=== PATIENT | female | born 1995 | race Caucasian/White ===

== ENCOUNTER 2024-05-13 03:44 | Observation (INO) | payer SELFPAY ==
[2024-05-12 23:36] VITALS: BP 135/92
[2024-05-13] MEDS: OMNIPAQUE 50 ML PO (01:04)
[2024-05-13 01:10] VITALS: BP 117/76
[2024-05-13 01:12] LABS: Urine Albumin Negative (Neg - Trace); Urine Bilirubin Negative (Negative); Urine Character Clear (Clear); Urine Color Yellow; Urine Glucose Negative (Negative); Urine Ketone 3+ (Negative); Urine Leukocyte Trace (Negative); Urine Nitrite Negative (Negative); Urine Occult Blood Negative (Negative); Urine Specific Gravity 1.025 (<1.030); Urine Urobilinogen Negative (Neg - 1+)
[2024-05-13 01:14] VITALS: BMI 26.4
--- NOTE | 2024-05-13 01:18 | ED.GENMED ---
History of Present Illness
General
Chief Complaint: Abdominal Pain
Source: patient
Exam Limitations: none
Time Seen by Provider: 05/13/24 00:12
History of Present Illness
History of Present Illness:
28-year-old female presents complaining of recurrent abdominal discomfort and vomiting and constipation. She was just discharged from [facility] yesterday. She had a workup including a CT scan and upper GI series as well as endoscopy. Of
note, patient is on rifampin and she has been on this for 1 month. 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 She notes decreased height. Upon discharge yesterday she had a couple bites of dinner and egg with
potatoes for breakfast and rice. She then vomited later multiple times. She also describes sensation of needing to move her bowels but cannot pass any stool. She has not moved her bowels in over a week. They tried milk of molasses enema at the
hospital she tried fleets enemas at home with magnesium citrate and MiraLAX without relief.
Phy Exam
Physical Exam
Physical Exam:
General: Well-appearing female no acute respiratory distress
HEENT: Normocephalic atraumatic
Heart: Regular rate and rhythm no murmurs
Lungs: Clear no wheeze or rales
Abdomen is soft tender to the right mid abdomen no guarding rebound normal bowel sounds nondistended
Rectal exam: Female clinical nursing director present in room during this exam. No rectal impaction. No hemorrhoids or fissures.
Extremities: No cyanosis
Course
Orders/Labs/Results
Orders:
Orders
05/13/24 00:33
Test Result ONCE
05/13/24 00:48
Urinalysis Reflex To Culture Urgent
Date Specimen was Collected: 05/13/24
Time Specimen was Collected: 00:47
Urine Microscopic Reflex Cult Urgent
Urine Culture Urgent
KELSY Source: U
Specimen Description:
Date Specimen was Collected: 05/13/24
Time Specimen was Collected: 00:47
Iohexol [Omnipaque] See Protocol PO NOW STA
05/13/24 00:59
Complete Blood Count/With Diff Urgent
Comprehensive Metabolic Panel Urgent
HCG, Serum Qualitative Screen Urgent
Lipase Urgent
Comment: ADD ON
05/13/24 01:29
Add On- LAB Urgent
Tests Added?: lipase
05/13/24 02:13
0.9% Sodium Chloride 1000 ml [Nss] 1,000 ml IV BOLUS
Ondansetron Injectable [Zofran] 4 mg IV NOW STA
05/13/24 03:18
Admit/Transfer Patient As Directed
Co-Sign Provider:
Level of Care: Observation services
Assign to:: Medical/Surgical
Physician / Group: Hospitalist
Diagnosis: Intractable vomiting
Code Status As Directed
Resuscitation Status: Full Code
PRN Pain Medication Management As Directed
May give lesser potent ordered pain med per pt: Yes
preference::
Protocol:: Medication orders for pain may be administered in a
manner that supports deferring to patient preference
when the pt is:
- Requesting an ordered lesser potent pain medication.
Least to most potent pain medications are defined
as: acetaminophen < NSAID < tramadol < opioids
(morphine, oxycodone, hydromorphone).
- Requesting a lesser dose of the same medication IF
ORDERED.
- Requesting a less intrusive route of administration
if both routes are prescribed by the provider (PO <
IV).
05/13/24 04:00
Flush (0.9% Sodium Chloride) [Flush (Nss)] See Dose Instructions IV PER PROTOCOL
05/13/24 04:33
Acetaminophen [Tylenol] 650 mg PO Q4HPRN PRN
Dextrose 5%/Lactringers 1000ML [D5lr] 1,000 ml IV 60 mls/hr
Dicyclomine [Bentyl] 10 mg PO QIDPRN PRN
Docusate W/Senna [Senokot-S] 1 tablet PO BIDPRN PRN
Mag Hydrox/Al Hydrox/Simeth [Maalox] 30 ml PO Q6HPRN PRN
Metoclopramide [Reglan] 10 mg IV Q6HPRN PRN
Polyethylene Glycol Powder [Miralax] 17 grams PO DAILYPRN PRN
05/13/24 04:33
Consult Notification Routine
Specialty to Notify: Gastroenterology
Date consulting provider notified: 05/13/24
Time consulting provider notified: 08:05
Notified:: Provider
Comment: TT'd Physician On-Call(Royer)
GASTROINTESTINAL CONSULT Routine
Consulting Provider: Sirisha Linton
Was physician already notified: No
Reason for consult: intractable emesis
Activity As Directed
Activity Level: With Assistance
Medical Records Request [Obtain Records] As Directed
Dates of Information to be Released: May 08 to
Type of Information Requested: Entire Record
Discharge Summary
Obtain Records from: [facility]
Vital Signs As Directed
Frequency: Per unit guidelines
DX Deep Vein Thrombosis Video Routine
05/13/24 Breakfast
Clear Liquid
At Your Request: Full Participation
05/13/24 06:09
Basic Metabolic Panel IN AM
05/13/24 08:00
Rifampin [Rifadin] 600 mg PO DAILY
05/13/24 18:00
Enoxaparin Sodium [Lovenox] 40 mg SC QPM
Abnormal Lab Results
05/13/24 05/13/24
00:48 00:59
Abs Immat Gran (auto) 0.1 H 10^3/uL
(0-0.05)
Absolute Lymphs (auto) 3.5 H 10^3/uL
(1.2-3.4)
Immature Gran % 1.2 H %
(0-0.5)
Carbon Dioxide 19 L mmol/L
(22-30)
Creatinine 0.5 L mg/dL
(0.6-1.0)
Urine Ketones 3+ A
(Negative)
Leukocyte Esterase Rfl Trace A
(Negative)
Urine RBC 3-6 A /HPF
(0-2)
Urine Bacteria (Reflex) Moderate A
(Negative)
05/13/24 00:59
05/13/24 00:59
Vital Signs
Initial and Last Documented VS:
Initial Vital Signs
Temp Pulse Resp BP Pulse Ox
98.1 F 87 19 135/92 97
05/12/24 23:36 05/12/24 23:36 05/12/24 23:36 05/12/24 23:36 05/12/24 23:36
Last Documented Vital Signs
Temp Pulse Resp BP Pulse Ox
98.2 F 63 18 103/61 98
05/14/24 07:00 05/14/24 07:00 05/14/24 07:00 05/14/24 07:00 05/14/24 09:06
MDM/Problems Addressed
Differential Diagnosis Includes:
Abdominal pain with recurrent vomiting and lack of bowel movements. Question constipation versus bowel obstruction. I reviewed the patient's records from her visit at [facility] last week. She had a CT scan of the abdomen pelvis with IV
contrast which demonstrated findings suggestive of SMA syndrome. This then prompted a upper GI series with a barium swallow and this was negative. She also had an endoscopy during the same stay which was also negative.
Discussed with patient options at this time with her recurrent discomfort and vomiting inability to take anything by mouth, patient did state that they were talking about a feeding tube at [place]. Will recheck labs. This time do CT with oral and
IV contrast.
*Critical Care Note
Total Time (30-74mins, 75-104mins- exclusive of procedures): Not Applicable
ED Attending Note
-
Portions of this chart may have been created with voice recognition software.� Occasional wrong word or��sound alike� substitutions may have occurred due to the inherent limitations of voice recognition software.
Discharge Plan
Departure
Patient Disposition: Admit
Date of Disposition: 05/13/24
Time of Disposition: 02:24
Admit to: Med/Surg
Presentation/result/management discussed w/ accepting MD/DO: Hospitalist
Discharge Problem:
Vomiting
Interventions
Interventions:
*Risk Screen - Suicide Last Done: 05/13/24 04:46
*General Assessment Last Done: 05/12/24 23:36
*Neglect/Abuse Screening Last Done: 05/12/24 23:36
ED- Fall Risk Assessment Last Done: 05/13/24 01:14
*ED COVID-19 Vaccine History Last Done: 05/13/24 04:46
*Nursing Disposition Last Done: 05/13/24 04:29
NS-Vizojp-Dwojvmuzaw Assessment Last Done: 05/13/24 01:14
Discharge Date and Time
Discharge Date/Time: 05/13/24 04:29
[2024-05-13 01:24] LABS: HCG, Serum Qualitative Screen Negative
[2024-05-13 01:24] LABS: Urine Mucus Moderate; Urine Squamous Cell >30 /LPF (Few)
[2024-05-13 01:25] LABS: % Basophils 0.4 % (0-2); % Eosinophils 0.8 % (0-6); % Immature Granulocytes 1.2 % (0-0.5); % Lymphocytes 37.8 % (20.5-51.1); % Monocytes 6.9 % (1.7-9.3); % Neutrophils 52.9 % (42.2-75.2); Absolute Eosinophils 0.1 10^3/uL (0-0.7); Absolute Immature Granulocytes 0.1 10^3/uL (0-0.05); Absolute Lymphocytes 3.5 10^3/uL (1.2-3.4); Absolute Monocytes 0.6 10^3/uL (0.1-0.6); Absolute Neutrophils 4.9 10^3/uL (1.4-6.5); Hematocrit 39.4 % (37.0-47.0); Mean Corp Hgb Conc. 35.5 g/dL (33.0-37.0); Mean Corpuscular Hgb 30.9 pg (27.0-31.0); Mean Platelet Volume 9.9 fL (7.4-10.4); Nucleated Red Blood Cells % 0 %; Platelet Count 235 10^3/uL (130-400); Red Blood Cell Count 4.53 10^6/uL (4.20-5.40); Red Cell Dist. Width 12.2 % (11.5-14.5); White Blood Cell Count 9.2 10^3/uL (4.8-10.8)
[2024-05-13 01:27] LABS: Urine Bacteria Moderate (Negative)
[2024-05-13 01:29] LABS: ALT (SGPT) 14 U/L (0-35); AST (SGOT) 23 U/L (14-36); Albumin 4.5 g/dl (3.5-5.0); Alkaline Phosphatase 75 U/L (38-126); Blood Urea Nitrogen 10 mg/dl (7-17); Calcium 9.5 mg/dl (8.4-10.2); Carbon Dioxide 19 mmol/L (22-30); Chloride 106 mmol/L (98-107); Glucose 90 mg/dl (70-99); Sodium 139 mmol/L (135-145); Total Bilirubin 0.6 mg/dl (0.2-1.3); Total Protein 6.6 g/dl (6.3-8.2); eGFR > 60.00
[2024-05-13 01:44] LABS: Lipase 132 U/L (23-300)
[2024-05-13 02:00] VITALS: BP 121/80
[2024-05-13] MEDS: NSS 1000 IV (02:26)
[2024-05-13] MEDS: ZOFRAN 4 MG IV (02:26)
--- NOTE | 2024-05-13 02:34 | EDRN ---
Pt tried to pass a hard stool on May 03 and had some bleeding. Pt started rifampin about 1 month ago and has been nauseous/vomiting since. One after starting rifampin pt attributed n/v to the medication. Pt has not had a BM in 1 week and feels
that she needs to do so. Pt says she has tried to disimpact herself but there is nothing there. Pt has taken laxatives, tried mag citrate which made her vomit, a fleets enema and was given a milk of molasses enema while in [facility]
Hospital for 4 days. No results. Pt had a CT of her abdomen with IV contrast which she says was questionable for SMA syndrome and prompted her admission. Pt adds there was very little stool noted on the CT. Pt has had decreased appetite for 1
month and admits she has not been able to each much of anything recently without vomiting. Pt reports she had a fluoroscopy and endoscopy which were both negative and she was discharged on Tuesday the . Pt has bloating. No fever/chills/cough,
cp, sob, weakness, dizziness, diarrhea.
--- NOTE | 2024-05-13 02:50 | HPS.HSE ---
Family Physician
-
Family Physician: Micaela Cortes
Chief Complaint
-
Nausea vomiting and abdominal pain
History of Present Illness
This is a 28-year-old female with no significant past medical history presents to the emergency department with intractable vomiting and abdominal pain that has been ongoing for over 1 month.
Patient reports generally feeling well up until about a month ago when she started having intractable nausea and vomiting. 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 She has no signs or symptoms of
active tuberculosis. No history of HIV. She is taking medications per health department requirements. She takes 600 mg of rifampin daily. She was also placed on Zofran for nausea vomiting due to concern that this may be a side effect of the
rifampin. The patient continued to have nonbilious and nonbloody emesis. She was not tolerating significant amount of solids but was able to keep some liquids down. On May 03 she developed significant constipation with very hard stools. She
ended up taking a laxative which allowed her to have a bowel movement assisted with digital manipulation. Patient continues to feel as though she needed to have a bowel movement but nothing was coming out. Informal examination of the abdomen
revealed decreased bowel sounds, attempted enema without improvement and she was sent to the emergency department. She was seen at [facility] May 09 and had extensive evaluation done there. Most of her labs were normal. She had a CT
of the abdomen and pelvis which showed a possible SMA but negative for SBO, bowel impaction or any other derangement. The fluoroscopy for the follow-through was negative for obstruction or impaction. Patient then underwent an EGD with biopsy which
was negative for SMA syndrome, negative for H. pylori gastritis and essentially negative. Patient continued to have vomiting but was discharged with instructions to advance her diet as tolerated. She failed to tolerated po at home and returns to
ED here.
Patient takes medical marijuana for anxiety. Denies recreational marijuana use. Denies alcohol or other drug use. She denies any prior intra-abdominal surgery. She had a similar presentation 15 years ago with extensive workup at [place] that was
similarly negative.
In the emergency department here she was afebrile hemodynamically stable and in no acute distress. Chemistries were essentially negative. She had normal lipase normal LFTs and negative beta hCG. CBC was unremarkable. Urinalysis had normal
squamous cells and is nondiagnostic.
Medical History
Past Medical History
Past Medical History: Reports Other (Anxiety)
Past Surgical History: Reports Gynocological (D&C)
Social History
Tobacco: Non-smoker
Alcohol: Occasional
Drug: Marijuana (medicinal use for anxiety )
Personal: Single
Living: With Family
Employment: Employed
Family History
Family History: Diabetes and Other (Brugada syndrome)
Allergies / Home Medications
Allergies reflects when Allergies were last updated in [facility].
Home Medications with original date entered in [facility]
Allergy/Medication List:
Allergies
Allergy/AdvReac Type Severity Reaction Status Date / Time
amoxicillin Allergy Hives Verified 05/12/24 23:36
cefprozil [From Cefzil] Allergy Hives Verified 05/12/24 23:36
car Allergy Hives Verified 05/12/24 23:36
hydromorphone [From Dilaudid] Allergy Hives Verified 05/12/24 23:36
Penicillins Allergy Hives Verified 05/12/24 23:36
tramadol Allergy Hives Verified 05/12/24 23:36
Home Medications
Medical Marijuana 1 dose inhalation PRN PRN anxiety 05/13/24
ondansetron HCl 8 mg tablet 8 mg PO Q12H PRN nausea/vomiting 05/13/24
rifampin 300 mg capsule 600 mg PO DAILY 05/13/24
Review of Systems
-
History Source: Patient
Constitutional: Reports No Symptoms
EENT: Reports No Symptoms
Respiratory: Reports No Symptoms
Cardiac: Reports No Symptoms
Abdomen/GI: Reports Abdominal Pain and Vomiting
: Reports No Symptoms
Musculoskeletal: Reports No Symptoms
Skin: Reports No Symptoms
Neurological: Reports No Symptoms
Endocrine: Reports No Symptoms
Hematologic/Lymphatic: Reports No Symptoms
Psych: Reports No Symptoms
Physical Exam
Vital Signs
Vital Signs
Temp Pulse Resp BP Pulse Ox
98.1 F 74 14 121/80 97
05/12/24 23:36 05/13/24 02:00 05/13/24 02:00 05/13/24 02:00 05/13/24 02:00
Physical Exam
General: Well Developed, Well Nourished, No Apparent Distress and Conversant
HEENT: NormoCephalic, Anicteric, Moist mucous membranes, Atraumatic, Good Dentition and PERRLA
Respiratory: Clear
Cardiac: S1/S2 and Regular Rhythm
GI: Soft, Non Distended, Normal Bowel Sounds and Tender (mild tenderness/soreness w/o guarding or rebound)
Rectal: Deferred by Provider
Genito-urinary: Deferred by me
Musculoskeletal: No Clubbing, No Cyanosis and No Edema
Skin: Warm
Neuro: AO x 3
Hematologic/Lymphatic: No Lymphadenopathy
Psych: Calm
Laboratory Results
-
05/13/24 00:59
05/13/24 00:59
Laboratory Results
Total Bilirubin 0.6 mg/dl (0.2-1.3) 05/13/24 00:59
AST 23 U/L (14-36) 05/13/24 00:59
ALT 14 U/L (0-35) 05/13/24 00:59
Alkaline Phosphatase 75 U/L (38-126) 05/13/24 00:59
Lipase 132 U/L (23-300) 05/13/24 00:59
Data Reviewed
-
Lab Data: Labs Reviewed by me
Old Records: Requested and Reviewed
Impression/Plan
-
IMPRESSION:
28 y.o female with history of anxiety coming in with one month of intractable emesis and abdominal pain.
PLAN:
Intractable Emesis - Patient with non-bloody and non-bilous emesis x 1 month. Tolerating liquids slowly with very small amounts of solids. Patient had extensive w/u at [place] where she was admitted on May 09. CT abd/pelvis, Abdominal
series, EGD with biopsy, basic labs and ab for TPO. She does not have bowel obstruction, impaction, luminal anatomic abnormality or biliary, pancreatic abnormality. SMA syndrome considered but negative on EGD. No obvious gastritis, pud, celiac
disease on EGD and biopsy. She does not associate symptoms with any particular foods. Leaves functional differential diagnosis such as gastroparesis vs cannabis hyperemesis or side effect of rifampin. She has no known risks for gastroparesis and
does not abuse cannabis. She is non-toxic appearing.
- admit to med/surg
- clear liquid diet for now and advance as tolerated
- trial of tigan as zofran as not been as effective.
- bentyl and reglan prn
- IV fluids D5 LR for now
- GI consult
- requested records from [facility]
DVT PPX - lovenox sq
Code Status - Full Code
[2024-05-13 03:00] VITALS: BP 121/78
--- NOTE | 2024-05-13 03:25 | EDRN ---
Informed CT was unable to be done because pt still has barium from scan on Tuesday - should wait [address].
[2024-05-13 04:36] VITALS: BMI 27.0
[2024-05-13 04:39] VITALS: BP 116/75
--- NOTE | 2024-05-13 05:11 | PTCARENOTE ---
Patient arrived from the ED via stretcher at approximately 0430. Patient ambulated from stretcher to bed - gait steady. Patient AAOx3. VSS as documented. Assessment as documented. Patient oriented to room. Bed in lowest position. Call cotter within
reach.
[2024-05-13] MEDS: MAALOX 30 ML PO (05:18)
[2024-05-13] MEDS: D5LR 1000 IV ×2 (05:18→21:02)
[2024-05-13] MEDS: REGLAN 10 MG IV ×2 (05:18→21:03)
[2024-05-13 07:56] LABS: Blood Urea Nitrogen 8 mg/dl (7-17); Carbon Dioxide 23 mmol/L (22-30); Chloride 103 mmol/L (98-107); Estimated Creatinine Clearance 116 ml/min; Glucose 87 mg/dl (70-99); Sodium 140 mmol/L (135-145); eGFR > 60.00
--- NOTE | 2024-05-13 08:25 | CON.GI ---
Consultation
-
Date/Time Consultation Requested: 05/13/2024, 4:30 am
Date/Time Consultation Performed: 05/13/2024, 9:30 am
Requesting Provider: Dr. Mccoy
Performing Provider: Dr. Linton
Reason for Consultation: intractable emesis
Medical History
Chief Complaint / HPI
Chief Complaint: vomiting
History of Present Illness:
28 yo f no significant PMH here with vomiting x 1 month. Started one week after she started rifampin for + quant test (skin test always positive; grandparents with TB; quant checked for work; got letters from state department needed treatment).
Nausea worse in AM, also dry heaves with some vomiting, decreased appetite from the nausea, worse if overeats. Hot showers no help make her lightheaded. Put on zofran by PCP. About 10 days ago started having constipation as well needing laxatives
and manual disimpaction (05/03). Since 05/03 had rabbit pellets daily except today had diarrhea. Went to ER [place] 05/09 had extensve work up including CT with possible SMA, SBFT which was negative, EGD with biopsy (all per patient report do not have
records). She does use MJ for anxiety - previously was using daily down to every other day as feel effects are more potent since starting rifampin.
Of note, at age 16 had similar episode was hospitalized in [place] had EGD/colon/GES done and was found to be impacted, + HP, and 'inflammed'.
Past Medical History
Past Medical History: Other (anxiety)
Past Surgical History: Gynecological (d+c)
Social History
Tobacco: Vaping
Alcohol: Occasional
Drug: Marijuana
Family History
Family History: Other (diabetes and brugada syndrome)
Allergies / Home Medications
Allergy/AdvReac Type Severity Reaction Status Date / Time
amoxicillin Allergy Hives Verified 05/12/24 23:36
cefprozil [From Cefzil] Allergy Hives Verified 05/12/24 23:36
car Allergy Hives Verified 05/12/24 23:36
hydromorphone [From Dilaudid] Allergy Hives Verified 05/12/24 23:36
Penicillins Allergy Hives Verified 05/12/24 23:36
tramadol Allergy Hives Verified 05/12/24 23:36
�Medication �Instructions �Recorded
Medical Marijuana 1 dose inhalation PRN PRN anxiety 05/13/24
ondansetron HCl 8 mg tablet 8 mg PO Q12H PRN nausea/vomiting 05/13/24
rifampin 300 mg capsule 600 mg PO DAILY 05/13/24
Review of Systems
-
All other systems: A 12 pt ROS was Negative except as stated above in HPI
Vital Signs
Temp Pulse Resp BP Pulse Ox
98.0 F 71 17 116/75 98
05/13/24 04:39 05/13/24 04:39 05/13/24 04:39 05/13/24 04:39 05/13/24 04:39
Physical Exam
Exam
General: Well Developed
HEENT: Normocephalic
Respiratory: Clear
GI: Non Tender and Non Distended
Musculoskeletal: No Clubbing
Skin: Warm
Neuro: AO x 3
Psych: Calm
Results
WBC 9.2 10^3/uL (4.8-10.8) 05/13/24 00:59
Hgb 14.0 g/dL (12.0-16.0) 05/13/24 00:59
Hct 39.4 % (37.0-47.0) 05/13/24 00:59
MCV 87.0 fL (81.0-99.0) 05/13/24 00:59
Plt Count 235 10^3/uL (130-400) 05/13/24 00:59
Absolute Neuts (auto) 4.9 10^3/uL (1.4-6.5) 05/13/24 00:59
Sodium 140 mmol/L (135-145) 05/13/24 06:09
Potassium 4.0 mmol/L (3.5-5.1) 05/13/24 06:09
Chloride 103 mmol/L (98-107) 05/13/24 06:09
Carbon Dioxide 23 mmol/L (22-30) 05/13/24 06:09
BUN 8 mg/dl (7-17) 05/13/24 06:09
Creatinine 0.7 mg/dL (0.6-1.0) 05/13/24 06:09
Calcium 9.0 mg/dl (8.4-10.2) 05/13/24 06:09
Total Bilirubin 0.6 mg/dl (0.2-1.3) 05/13/24 00:59
AST 23 U/L (14-36) 05/13/24 00:59
ALT 14 U/L (0-35) 05/13/24 00:59
Alkaline Phosphatase 75 U/L (38-126) 05/13/24 00:59
Lipase 132 U/L (23-300) 05/13/24 00:59
Diagnostic Image Results:
Prior GI Procedures:
EGD:
Colonoscopy:
Assessment / Plan
-
28 yo F no significant pmh uses medical MJ for anxiety presenting with n/v/constipation also on rifampin for + quant.
Due to timing, suspect rifampin induced.
MJ may also be playing a role.
Less likely gastroparesis.
Constipation could be due to zofran and constipation may be worsening the n/v.
Recommendations:
- Xray assess stool burden
- Change senna to bid scheduled (will not do miralax may be hard to tolerate with nausea/vomiting)
- Will stop zofran as could be worsening constipation and do reglan iv prn instead (diarrhea this am could have been from reglan vs overflow)
- Get EKG for baseline QTc
- D/w ID ok to stop rifampin - they will see her tomorrow and assess options of switching to INH vs holding off on therapy
- Request records from [facility]
- Discussed MJ cessation and d/w outpatient doctors other options for anxiety
D/w hospitalist and ID
-
-
Thank you for consultation and allowing me to participate in the patient's care. Please call the business education instructor GI physician during the after hours with any questions or concerns.
[2024-05-13 08:31] VITALS: BP 118/73
[2024-05-13] MEDS: RIFADIN 600 MG PO (08:39)
[2024-05-13 11:08] LABS: Amphetamines Negative (Negative); Barbiturates Negative (Negative); Benzodiazepines Negative (Negative); Buprenorphine Negative (Negative); Cocaine Negative (Negative); Marijuana Positive (Negative); Methadone Negative (Negative); Methamphetamines Negative (Negative); Opiates Negative (Negative); Phencyclidine Negative (Negative); Tricyclic Antidepressants Negative (Negative)
--- NOTE | 2024-05-13 11:15 | W.PN.HOSP.TC ---
Today's Communication/Plan
-
Discontinue rifampin
Appreciate GI recommendations
Follow-up imaging for stool burden
ID consult tomorrow for possible INH initiation
Supportive care, antiemetics
Assessment / Plan
Assessment / Plan
Physical Exam
General: Well Developed, Well Nourished, No Apparent Distress and Conversant
HEENT: NormoCephalic, Anicteric, Moist mucous membranes, Atraumatic, Good Dentition and PERRLA
Respiratory: Clear
Cardiac: S1/S2 and Regular Rhythm
GI: Soft, Non Distended, Normal Bowel Sounds and Tender (mild tenderness/soreness w/o guarding or rebound)
Rectal: Deferred by Provider
Genito-urinary: Deferred by me
Musculoskeletal: No Clubbing, No Cyanosis and No Edema
Skin: Warm
Neuro: AO x 3
Hematologic/Lymphatic: No Lymphadenopathy
Psych: Calm
28 y.o female with history of anxiety coming in with one month of intractable emesis and abdominal pain.
PLAN:
Intractable Emesis -
-Has had extensive workup at admission, all unremarkable
� Suspect secondary to rifampin as symptoms began 1 week after initiation of medication
- clear liquid diet for now and advance as tolerated
-Antiemetics
- reglan prn
-IV fluids
- GI consult
- requested records from [place]
�Bowel regimen
�Marijuana cessation
#Positive QuantiFERON
� Discontinue rifampin due to possible side effects
� ID consult tomorrow for different regimen
� Anticipate initiation of INH therapy, defer to ID
DVT PPX - lovenox sq
Code Status - Full Code
Anticipated Discharge: 24 - 48 hours
Subjective/Interval History
-
Date of Service: May 13, 2024
Still nauseous
Objective Data
-
Labs:
Laboratory Results
05/13/24 05/13/24
00:59 06:09
WBC 9.2
Hgb 14.0
Hct 39.4
Plt Count 235
Sodium 139 140
Potassium 4.0 4.0
Chloride 106 103
Carbon Dioxide 19 L 23
BUN 10 8
Creatinine 0.5 L 0.7
Glucose 90 87
Calcium 9.5 9.0
Total Bilirubin 0.6
AST 23
ALT 14
Alkaline Phosphatase 75
Vital Signs:
Vital Signs
Temp Pulse Resp BP Pulse Ox
98.6 F 66 18 118/73 98
05/13/24 08:31 05/13/24 08:31 05/13/24 08:31 05/13/24 08:31 05/13/24 08:31
Review of Systems
-
History Source: Patient
All other systems: Not reviewed unless documented
Data Reviewed
-
Labs: Labs Reviewed by me
--- NOTE | 2024-05-13 14:26 | CM ---
Met with pt at bedside
Pt reports she lives with her boyfriend in a 1 story home; 6 steps to enter
Independent, employed FT
DME - [employer] Cuff, pulse ox
SNF/HH - no past hx
Has ride at d/c
PCP - Micaela Genoveva
Pharm - [facility]
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 Insurance granted after 1st 90 days. Reports was given instructions to apply for [place] for hospitalization
Plan - anticipate home no needs
[2024-05-13] MEDS: LOVENOX 40 MG SC (17:35)
[2024-05-13 23:04] VITALS: BP 127/71
[2024-05-14 06:54] LABS: Hematocrit 36.2 % (37.0-47.0); Hemoglobin 12.5 g/dL (12.0-16.0); Mean Corp Hgb Conc. 34.5 g/dL (33.0-37.0); Mean Corpuscular Hgb 30.5 pg (27.0-31.0); Mean Corpuscular Volume 88.3 fL (81.0-99.0); Mean Platelet Volume 10.4 fL (7.4-10.4); Platelet Count 213 10^3/uL (130-400); Red Cell Dist. Width 12.3 % (11.5-14.5); White Blood Cell Count 7.4 10^3/uL (4.8-10.8)
[2024-05-14 07:00] VITALS: BP 103/61
[2024-05-14 07:32] LABS: ALT (SGPT) 10 U/L (0-35); AST (SGOT) 16 U/L (14-36); Albumin 3.6 g/dl (3.5-5.0); Alkaline Phosphatase 63 U/L (38-126); Blood Urea Nitrogen 4 mg/dl (7-17); Carbon Dioxide 24 mmol/L (22-30); Chloride 105 mmol/L (98-107); Estimated Creatinine Clearance > 125 ml/min; Glucose 79 mg/dl (70-99); Potassium 4.2 mmol/L (3.5-5.1); Sodium 139 mmol/L (135-145); Total Bilirubin 0.6 mg/dl (0.2-1.3); Total Protein 5.5 g/dl (6.3-8.2); eGFR > 60.00
[2024-05-14] MEDS: REGLAN 10 MG IV (09:16)
--- NOTE | 2024-05-14 10:29 | W.PN.GI.CBS2 ---
Today's Communication / Plan
-
monitor nausea off rifampin, ID to consult, gi signing off
Assessment / Plan
-
28 yo F no significant pmh uses medical MJ for anxiety presenting with n/v/constipation also on rifampin for + quant.
Due to timing, suspect rifampin induced.
MJ may also be playing a role.
Less likely gastroparesis.
Constipation could be due to zofran and constipation may be worsening the n/v.
QTc normal.
Recommendations:
- ID to weigh in re: rifampin
- Suspect will improve off rifampin
- Ensure bowel regimen - will add miralax bid
- Reglan iv prn (diarrhea this am could have been from reglan vs overflow)
- Records from [place] pending
- Discussed MJ cessation and d/w outpatient doctors other options for anxiety
GI will sign off please call with questions
Subjective
Subjective
Date of Service: May 14, 2024
Some nausea this am
Objective
Data Reviewed
Laboratory Data:
Laboratory Results
05/14/24 04:55
05/14/24 04:55
Laboratory Results
Total Bilirubin 0.6 mg/dl (0.2-1.3) 05/14/24 04:55
AST 16 U/L (14-36) 05/14/24 04:55
ALT 10 U/L (0-35) 05/14/24 04:55
Alkaline Phosphatase 63 U/L (38-126) 05/14/24 04:55
Lipase 132 U/L (23-300) 05/13/24 00:59
Vital Signs and I&O:
Vital Signs
Temp Pulse Resp BP Pulse Ox
98.2 F 63 18 103/61 98
05/14/24 07:00 05/14/24 07:00 05/14/24 07:00 05/14/24 07:00 05/14/24 09:06
I&O
05/13/24 05/14/24 05/15/24
06:59 06:59 06:59
Intake Total 1599 / 1599
Balance 1599 / 1599
Physical Exam
Physical Exam
GI: Non Distended and Non Tender
--- NOTE | 2024-05-14 12:08 | CM ---
Met with patient at bedside.
Discussed role of caser shoe parts.
Ghislaine from [facility] spoke with patient.
Ghislaine stated to that patient is over income for medicaid and that the self pay counselors will reach out to patient.
Patient aware of documents that are needed to provide.
No needs anticipated.
PLAN: Discharge when medically stable. No needs anticipated.
--- NOTE | 2024-05-14 13:04 | CON.ID ---
Consultation
-
Date/Time Consultation Requested: 05/14/2024 1106
Date/Time Consultation Performed: 05/14/2024 1300
Requesting Provider: Dr. Cuellar
Performing Provider: Dr. Penaloza
Reason for Consultation: Nausea/vomiting; Hx positive QuantiFERON TB Gold
Chief Complaint / Past History
History of Present Illness
Quinn Jhaveri is a 28-year-old female being evaluated at request of Dr. Cuellar in regards to a positive QuantiFERON TB Gold. History is obtained from chart review, along with patient interview.
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 In the usual onboarding process, she was tested for TB via a QuantiFERON TB Gold, and was found to be positive. The [facility] reached out to
her, and advised treatment for latent TB. She took the correspondence to her PCP and she was started on a 4-month course of rifampin. She began medicines approximately 6 weeks ago.
She recalls that approximate 1 to 2 weeks after starting rifampin she began to have significant nausea and she was placed on Zofran. Subsequent to that she developed constipation and recently was admitted to [place] regarding the nausea, vomiting
and constipation. She was checked for SMA syndrome, and was found to be negative, but while she was hospitalized she underwent endoscopy. Ultimately, late last week she was discharged to home, and resumed rifampin only for her to develop nausea
and vomiting again. This time, she came back to the emergency room here at [facility] and has had a workup for the nausea at this point.
She notes that she does have a history of exposure to tuberculosis, noting that her great grandparents both were positive for active TB and had a history of quarantine with medications being administered. She does not have significant international
travel.
Overall, she denies any history of cough. She denies any weight loss. She denies any night sweats. She denies any hemoptysis. She notes that prior chest x-rays were all negative for any infiltrates.
Past History
Additional Past Medical History:
Latent TB
Fibromyalgia
First-degree AV block
Additional Past Surgical History:
D&C
Allergy History:
amoxicillin Allergy (Verified 05/12/24 23:36)
Hives
cefprozil [From Cefzil] Allergy (Verified 05/12/24 23:36)
Hives
car Allergy (Verified 05/12/24 23:36)
Hives
hydromorphone [From Dilaudid] Allergy (Verified 05/12/24 23:36)
Hives
tramadol Allergy (Verified 05/12/24 23:36)
Hives
Medications Reviewed: Yes
Current Antibiotics:
None
Social History
Tobacco: Vaping
Alcohol: None
Drug: Marijuana (medical)
Living: With Family
Employment: Employed
Family History
Family History: Other (Great-grandparents with active tuberculosis)
Review of Systems
Vital Signs
Temp Pulse Resp BP Pulse Ox
98.2 F 63 18 103/61 98
05/14/24 07:00 05/14/24 07:00 05/14/24 07:00 05/14/24 07:00 05/14/24 09:06
Physical Exam
Physical Exam
Constitutional: No Acute Distress and Comfortable
Eyes: Pupils Equal, Pupils Round, No Conjunctival Hemorrhage and Sclera Anicteric
Oral: No Thrush and No Ulcers
Cardiovascular: Regular Rate and S1/S2; Negative S3/S4, Murmur or Rub
Pulmonary: Clear and Symmetric; Negative Wheezes, Rales or Rhonchi
Gastrointestinal: Soft, Non Tender, Non Distended and Normal Bowel Sounds
Genito-Urinary: Negative Islas
Extremities: Negative Edema, Cyanosis, Erythema, Venous Insufficiency or Janeway Lesions
Skin: Warm and Dry; Negative Rash or Jaundice
Neurological: Awake, Alert and Oriented
Psychological: Calm
.
Lab / Diagnostic Study Results
05/14/24 04:55
05/14/24 04:55
Abs Immat Gran (auto) 0.1 10^3/uL (0-0.05) H 05/13/24 00:59
Absolute Neuts (auto) 4.9 10^3/uL (1.4-6.5) 05/13/24 00:59
Absolute Lymphs (auto) 3.5 10^3/uL (1.2-3.4) H 05/13/24 00:59
Absolute Monos (auto) 0.6 10^3/uL (0.1-0.6) 05/13/24 00:59
Absolute Basos (auto) 0.0 10^3/uL (0-0.2) 05/13/24 00:59
Immature Gran % 1.2 % (0-0.5) H 05/13/24 00:59
Neutrophils % 52.9 % (42.2-75.2) 05/13/24 00:59
Lymphocytes % 37.8 % (20.5-51.1) 05/13/24 00:59
Monocytes % 6.9 % (1.7-9.3) 05/13/24 00:59
Eosinophils % 0.8 % (0-6) 05/13/24 00:59
Basophils % 0.4 % (0-2) 05/13/24 00:59
Ur Squamous Epith Cells >30 /LPF (Few) 05/13/24 00:48
Microbiology Results
Micro:
05/13/24 00:48 Urine Culture - Final
Urine
Assessment / Plan
Nausea/vomiting; likely medication effect (rifampin)
Latent tuberculosis
- 6 weeks into course of rifampin
Constipation
Fibromyalgia
Hx first-degree AV block
Recommendations:
Given history, likely etiology of ongoing nausea and vomiting is the rifampin.
Discontinue further rifampin use.
Will follow-up in the office to discuss need for treatment of latent tuberculosis, and possible regimens that avoid rifampin.
No objection to discharge from an Infectious Diseases standpoint.
Care Review
Plan reviewed with: Physician (Hospitalist)
--- NOTE | 2024-05-14 13:55 | W.DS.TRANS ---
DC Summary - Plumbing Manager
-
Discharge Instructions:
Discharge Diagnosis/Procedures Nausea with emesis
Diet Regular
Instructions:
Stand-Alone Forms:
Changes to Home Medications: Yes
Discharge Medications:
DC Medications w/original date entered in [employer]
Medical Marijuana 1 dose inhalation PRN PRN anxiety 05/13/24
Home Medication Changes
Rifampin stopped
Pending Results: No
--- NOTE | 2024-05-14 14:26 | PTCARENOTE ---
Patient discharged home, transported by mother. Work note provided by . KITTY instructions and medications reviewed with patient and patient's mother at bedside, both verbalized understanding. Patient instructed on stopping rifampin and having f/u
with ID per DC paperwork, patient verbalized understanding. IV removed by this RN. Patient refused wheelchair and staff escort, ambulated down to car with belongings and mother.
== END 2024-05-14 14:36 | disposition home or self-care (01) ==
LOC: 2 NORTH 03:44
PROVIDERS: Internal Medicine; Physician Assistant; ADMITTING PHYSICIAN Internal Medicine; ATTENDING PHYSICIAN Internal Medicine; CONSULT PHYSICIAN Internal Medicine Gastroenterology; EMERGENCY PHYSICIAN Emergency Medicine; FAMILY PHYSICIAN Family Medicine; OTHER PHYSICIAN Internal Medicine Infectious Disease
DX: R11.2 Nausea with vomiting, unspecified (principal); R10.9 Unspecified abdominal pain; K59.00 Constipation, unspecified; R76.12 Nonspecific reaction to cell mediated immunity measurement of gamma interferon antigen response without active tuberculosis; F41.9 Anxiety disorder, unspecified; M79.7 Fibromyalgia; I44.0 Atrioventricular block, first degree; I49.8 Other specified cardiac arrhythmias; R19.7 Diarrhea, unspecified; R00.1 Bradycardia, unspecified; F17.290 Nicotine dependence, other tobacco product, uncomplicated; F12.90 Cannabis use, unspecified, uncomplicated; Z88.5 Allergy status to narcotic agent; Z88.0 Allergy status to penicillin; Z88.8 Allergy status to other drugs, medicaments and biological substances; Z91.018 Allergy to other foods; Z83.3 Family history of diabetes mellitus; Z86.15 Personal history of latent tuberculosis infection
CPT/HCPCS: 74018; 80048; 80053; 80306; 81003; 81015; 83690; 84703; 85025; 85027; 87086; 93005; 96361; 96374; 99285

== ENCOUNTER 2025-07-01 11:14 | Emergency (ER) | payer OTHER, SELFPAY ==
--- NOTE | 2025-07-01 12:04 | EDRN ---
the pt was brought back to ER bed #8 from the waiting room, awaiting for the pt to be seen
--- NOTE | 2025-07-01 12:36 | ED.GENMED ---
History of Present Illness
General
Chief Complaint: Flank Pain
Time Seen by Provider: 07/01/25 12:29
Nursing documentation reviewed up to this point in time: agreed with
History of Present Illness
History of Present Illness:
30-year-old female presents to the ER for evaluation of abrupt onset right-sided flank pain this morning. She states she had been feeling otherwise well prior to onset of symptoms. She denies any dysuria or hematuria. No recent cough or cold
symptoms. She had multiple episodes of emesis prior to my evaluation and reports persistent feeling of nausea. Pain is located in her right flank only, no radiation. She states it is similar to prior kidney stones. Her most recent stone was many
years ago. She denies any recent change in diet. No recent reported illness, no cough or cold symptoms. She states that she has never required any surgical interventions for her previous kidney stones.
Review of Systems
Review of Systems
Allergies reviewed?: Yes
Phy Exam
Physical Exam
Physical Exam:
Patient is awake, alert, appears in no acute distress, head is NCAT, PERRL, EOMI mucous membranes moist, conjunctiva pink, heart regular rate and rhythm without murmurs or ectopy, lungs are clear to auscultation without wheezes rales or rhonchi, no
JVD, abdomen is soft and nontender on palpation, positive right CVA tenderness, extremities without edema, GCS is 15
Course
Orders/Labs/Results
Orders:
Orders
07/01/25 12:34
IV Insert/Care/Rem.- Treatment PRN
0.9% Sodium Chloride 1000 ml [Nss] 1,000 ml IV BOLUS
Morphine Sulfate 4 mg IV NOW STA
Ondansetron Injectable [Zofran] 4 mg IV NOW STA
07/01/25 12:35
Test Result ONCE
07/01/25 12:50
Complete Blood Count/With Diff Urgent
Comprehensive Metabolic Panel Urgent
HCG, Urine Qualitative Screen Urgent
Date Specimen was Collected: 07/01/25
Time Specimen was Collected: 12:39
Urinalysis Reflex To Culture Urgent
Date Specimen was Collected: 07/01/25
Time Specimen was Collected: 12:39
Urine Microscopic Reflex Cult Urgent
Urine Culture Urgent
KELSY Source: U
Specimen Description:
Date Specimen was Collected: 07/01/25
Time Specimen was Collected: 12:39
07/01/25 14:01
Abdomen/Pelvis wo Contrast CT [CT Abd/pelvis Wo Iv Cont] Urgent
Comment:
Reason For Exam: R flank pain
07/01/25 15:06
Tamsulosin [Flomax] 0.4 mg PO NOW STA
Abnormal Lab Results
07/01/25
12:50
WBC 15.8 H 10^3/uL
(4.8-10.8)
Abs Immat Gran (auto) 0.1 H 10^3/uL
(0-0.05)
Absolute Neuts (auto) 13.7 H 10^3/uL
(1.4-6.5)
Absolute Monos (auto) 0.7 H 10^3/uL
(0.1-0.6)
Neutrophils % 86.9 H %
(42.2-75.2)
Lymphocytes % 8.2 L %
(20.5-51.1)
Urine Ketones 3+ A
(Negative)
Ur Occult Blood Reflex 4+ A
(Negative)
Leukocyte Esterase Rfl 1+ A
(Negative)
Urine Bacteria (Reflex) Few A
(Negative)
Urine Albumin (Reflex) 2+ A
(Neg - Trace)
07/01/25 12:50
07/01/25 12:50
Mild leukocytosis seen. UA is not consistent with infection. Kidney function preserved
Vital Signs
Initial and Last Documented VS:
Initial Vital Signs
Temp Pulse Resp Pulse Ox
98.1 F 114 18 100
07/01/25 11:46 07/01/25 11:46 07/01/25 11:46 07/01/25 11:46
Last Documented Vital Signs
Temp Pulse Resp BP Pulse Ox
98.6 F 76 20 111/64 95
07/01/25 12:51 07/01/25 12:51 07/01/25 12:51 07/01/25 13:00 07/01/25 13:00
MDM/Problems Addressed
Differential Diagnosis Includes:
Differential diagnosis to consider but not limited to kidney stone, pyelonephritis, gastroenteritis, bowel obstruction along with other etiologies considered
Chronic conditions affecting care:
Prior kidney stone, arrhythmia, latent tuberculosis
*Radiology
Radiology exam reviewed: preliminary read by ED provider (I independently viewed and interpreted noncontrast CT of the abdomen pelvis showing a 2 to 3 mm stone present in the proximal right ureter with mild hydronephrosis. Await radiology
interpretation) and radiology read reviewed (3 mm stone right ureter)
*Pulse Oximetry
SaO2: 100
Oxygen Mode of Delivery: Room air
Patient hypoxic: no
*Critical Care Note
Total Time (30-74mins, 75-104mins- exclusive of procedures): Not Applicable
Update Note
Update Note:
Given patient without prior complicated stone history, will start with labs, urinalysis and supportive treatment. If symptoms persist or unrelieved, will consider radiograph at that point. Patient agrees with plan at current.
1400: Still having discomfort. Will obtain CT scan for further evaluation. Pt voided- await results
1507: Based on my interpretation of CT scan, oral Flomax ordered. Awaiting rad interpretation for dispo
1610: I reviewed all test results with patient including CT results. We discussed plan for discharge home, medication usage and strict return precautions. She feels comfortable plan and has no questions at current time.
ED Attending Note
-
Portions of this chart may have been created with voice recognition software.� Occasional wrong word or��sound alike� substitutions may have occurred due to the inherent limitations of voice recognition software.
Discharge Plan
Departure
Patient Disposition: Home (Routine Discharge)
Date of Disposition: 07/01/25
Time of Disposition: 16:07
Patient with high blood pressure during this ER visit?: No
Discharge Problem:
Renal colic on right side
Instructions: Kidney Stones (DC), How to Strain Your Urine
Prescriptions:
New
tamsulosin [Flomax] 0.4 mg capsule
0.4 mg PO DAILY Qty: 10 0RF
ondansetron 4 mg tablet,disintegrating
4 mg PO TIDPRN PRN (Reason: nausea/vomiting) Qty: 10 0RF
oxycodone 5 mg tablet
5 mg PO Q6H PRN (Reason: Pain) Qty: 8 0RF
No Action
Medical Marijuana
1 dose inhalation PRN PRN (Reason: anxiety)
Referrals:
Micaela Cortes DO [Family Provider, Family Practice]
Activity Restrictions/Additional Instructions:
Encourage fluids. Please strain your urine to ensure passage of stone. Use Flomax as prescribed daily until you passed your kidney stone. Use Tylenol extra strength is available [id number] for discomfort until he passed the stone. Add
oxycodone as prescribed as needed for severe pain. Use Zofran as prescribed as needed for nausea. Please return to the ER for any concerns including but not limited to inability to eat or drink, fever, severe pain. Please follow-up with your
doctor in 1 week for reevaluation and further care.
Interventions
Interventions:
*Risk Screen - Suicide Last Done: 07/01/25 11:49
*General Assessment Last Done: 07/01/25 12:51
*Neglect/Abuse Screening Last Done: 07/01/25 12:51
*ED- Fall Risk Assessment Last Done: 07/01/25 12:51
*ED COVID-19 Vaccine History Last Done: 07/01/25 12:51
*ED Influenza Vaccine History Last Done: 07/01/25 12:51
SH-Jqxwkj-Zadhqcjazr Assessment Last Done: 07/01/25 12:51
ED-Female Genitourinary Assessment Last Done: 07/01/25 12:51
Discharge Date and Time
Print Language: PARAGUAYAN
[2025-07-01] MEDS: MORPHINE SULFATE 4 MG IV (12:42)
[2025-07-01] MEDS: NSS 1000 IV (12:42)
[2025-07-01] MEDS: ZOFRAN 4 MG IV (12:43)
[2025-07-01 12:51] VITALS: BP 109/63; BMI 24.9
[2025-07-01 12:52] VITALS: BP 109/63
[2025-07-01 13:00] VITALS: BP 111/64
[2025-07-01 13:00] LABS: Hematocrit 40.1 % (37.0-47.0); Hemoglobin 13.3 g/dL (12.0-16.0); Mean Corp Hgb Conc. 33.2 g/dL (33.0-37.0); Mean Corpuscular Volume 89.5 fL (81.0-99.0); Nucleated Red Blood Cells % 0 %; Platelet Count 268 10^3/uL (130-400); Red Cell Dist. Width 12.6 % (11.5-14.5)
[2025-07-01 13:13] LABS: ALT (SGPT) 17 U/L (0-35); AST (SGOT) 17 U/L (14-36); Albumin 4.6 g/dl (3.5-5.0); Alkaline Phosphatase 80 U/L (38-126); Blood Urea Nitrogen 10 mg/dl (7-17); Calcium 9.6 mg/dl (8.4-10.2); Carbon Dioxide 25 mmol/L (22-30); Chloride 102 mmol/L (98-107); Estimated Creatinine Clearance > 125 ml/min; Glucose 90 mg/dl (70-99); Potassium 3.5 mmol/L (3.5-5.1); Sodium 135 mmol/L (135-145); Total Protein 7.0 g/dl (6.3-8.2); eGFR > 60.00
--- NOTE | 2025-07-01 14:05 | EDRN ---
the pt was able to provide a urine sample which was sent to the lab
[2025-07-01 14:23] LABS: Urine Character Clear (Clear)
[2025-07-01 14:24] LABS: HCG, Urine Qualitative Screen Negative
[2025-07-01 14:47] LABS: Urine Squamous Cell 0-2 /LPF (Few)
[2025-07-01 14:48] LABS: Urine Red Blood Cell 0-2 /HPF (0-2); Urine White Cell 0-2 /HPF (0-5)
[2025-07-01 16:27] VITALS: BP 115/81
== END 2025-07-01 16:28 | disposition home or self-care (01) ==
LOC: EMR 11:14
PROVIDERS: EMERGENCY PHYSICIAN Emergency Medicine; FAMILY PHYSICIAN Family Medicine
DX: N13.2 Hydronephrosis with renal and ureteral calculous obstruction (principal); D72.829 Elevated white blood cell count, unspecified; Z86.15 Personal history of latent tuberculosis infection; Z87.442 Personal history of urinary calculi
CPT/HCPCS: 99284; 96374; 96375; 96361; 74176; 80053; 81003; 81015; 81025; 85025; 87086

== ENCOUNTER 2025-07-02 18:11 | Day surgery (SDC) | payer OTHER, SELFPAY ==
[2025-07-02] VITALS (16 sets, daily range): BP systolic 96–131; BP diastolic 50–90; BMI 25.4
--- NOTE | 2025-07-02 05:19 | ED.GENMED ---
History of Present Illness
<Ana Paula Oreilly PA-C - Last Filed: 07/02/25 08:09>
General
Chief Complaint: Flank Pain
Source: patient
Exam Limitations: none
Time Seen by Provider: 07/02/25 05:13
Nursing documentation reviewed up to this point in time: agreed with
History of Present Illness
History of Present Illness:
Note:
CHIEF COMPLAINT(S)
Severe pain, possibly related to a kidney stone.
HISTORY OF PRESENT ILLNESS
The patient is a 30-year-old female with a history of kidney stones. She reports severe pain that began after his recent discharge from the emergency department the following day. The patient was unable to tolerate oxycodone due to vomiting after
taking it, despite co-administration with ondansetron. She took the medications at 6 p.m. and 3 a.m., but vomited them later. The patient expressed that this instance of pain was more severe than previous episodes and persistent after initial
treatment with morphine at the hospital. He denies any urinary symptoms such as burning or typical urinary tract infection symptoms. In the past, after being administered medicine at the hospital, pain did not recur. The patient notes that his last
episode was several years ago during a visit to [place]. She has never required surgical stone removal. She denies associated burning with urination, urinary frequency, pelvic pain, fevers.
SOCIAL HISTORY
The patient has previously lived in [place]
Ex smoker
ALLERGIES
Allergy to dilaudid (hydromorphone).
allergy to tramadol, toradol
PHYSICAL EXAM
General: Alert, no acute distress.
Skin: Warm, dry.
Head: Normocephalic, atraumatic.
Neck: Supple, trachea midline.
Eye, Ears, Nose, Mouth, and Throat: Oral mucosa moist.
Cardiovascular: Normal peripheral perfusion, No edema.
Respiratory: Respirations are non-labored.
Gastrointestinal: Abdomen nondistended. Non-tender to palpation. Right CVA tenderness noted.
Back: No midline spinal tenderness. Normal range of motion, Normal alignment.
Musculoskeletal: Normal range of motion, normal strength.
Neurological: Alert and oriented to person, place, time, and situation, No focal neurological deficit observed.
Psychiatric: Cooperative, appropriate mood & affect.
PLAN
Resume intravenous medication, including morphine, to manage pain effectively.
DIFFERENTIAL DIAGNOSIS
The Differential Diagnosis includes, in no particular order and is not limited to:
1. Nephrolithiasis (Kidney Stone)
2. Urinary tract infection
3. Pyelonephritis
4. Appendicitis
5. Gastroesophageal reflux disease
6. Peptic ulcer disease
7. Pancreatitis
8. Diverticulitis
9. Gallstones (Cholelithiasis)
10. Musculoskeletal pain
Disposition:
SUMMARY OF ENCOUNTER
The patient is a 30-year-old female who presented to the emergency department with severe pain, suspected to be renal colic, following a diagnosis of a 3-millimeter stone in the right proximal ureter. This is her second visit in the past 24 hours
due to returning symptoms and persistent vomiting, inhibiting her ability to tolerate oxycodone and ondansetron. Her symptoms improved after treatment in the emergency department.
MANAGEMENT OF THE PATIENTS CARE WAS DISCUSSED WITH
Urology consultation was requested for a bedside evaluation due to the patients second visit and persistent symptoms.
PLAN
Continue managing the patients pain and symptoms. A urology consult has been requested to evaluate the need for potential interventions.
MEDICATION RECONCILIATION
- Oxycodone: Patient reported persistent vomiting and inability to tolerate this medication.
- Ondansetron: Administered but not tolerated effectively due to vomiting.
MEDICAL DECISION MAKING
-Complexity of Data Reviewed: Chronic conditions affecting care include a history of kidney stones. The differential diagnosis includes nephrolithiasis, urinary tract infection, pyelonephritis, appendicitis, gastroesophageal reflux disease, peptic
ulcer disease, pancreatitis, diverticulitis, gallstones, and musculoskeletal pain.
-Data:
Category 2:
My independent interpretation confirmed a 3-millimeter stone located in the right proximal ureter.
Category 3:
A discussion with a urologist was conducted to facilitate a bedside evaluation and assess the need for further interventions.
-Risk:
Prescription medication was provided and prescribed, considering oxycodone and ondansetron management.
DIAGNOSIS
- Nephrolithiasis (N20.0)
UPDATE
Case signed out to Mary Lou CLARK pending urology consult
Review of Systems
<Ana Paula Oreilly PA-C - Last Filed: 07/02/25 08:09>
Review of Systems
All Other Systems: ROS reviewed and negative except as documented in HPI and ROS
Phy Exam
<Ana Paula Oreilly PA-C - Last Filed: 07/02/25 08:09>
Physical Exam
Physical Exam:
see hpi
Course
<Ana Paula Oreilly PA-C - Last Filed: 07/02/25 08:09>
Orders/Labs/Results
Orders:
Orders
07/02/25 05:13
0.9% Sodium Chloride 500 ml [Nss] 500 ml IV BOLUS
Morphine Sulfate 4 mg IV NOW STA
Ondansetron Injectable [Zofran] 4 mg IV NOW STA
07/02/25 05:27
Complete Blood Count/With Diff Urgent
Comprehensive Metabolic Panel Urgent
07/02/25 07:22
Urinalysis Reflex To Culture Urgent
Date Specimen was Collected: 07/02/25
Time Specimen was Collected: 07:21
Urine Microscopic Reflex Cult Urgent
Urine Culture Urgent
KELSY Source: U
Specimen Description:
Date Specimen was Collected: 07/02/25
Time Specimen was Collected: 07:21
07/02/25 07:40
UROLOGY CONSULT Urgent
Consulting Provider: Dequan Murphy
Was physician already notified: Yes
07/02/25 08:13
0.9% Sodium Chloride 1000 ml [Nss] 1,000 ml IV BOLUS
07/02/25 08:56
Ketorolac [Toradol] 15 mg IV NOW STA
Abnormal Lab Results
07/02/25 07/02/25
05:27 07:22
WBC 12.4 H 10^3/uL
(4.8-10.8)
Abs Immat Gran (auto) 0.1 H 10^3/uL
(0-0.05)
Absolute Neuts (auto) 9.9 H 10^3/uL
(1.4-6.5)
Immature Gran % 0.6 H %
(0-0.5)
Neutrophils % 79.8 H %
(42.2-75.2)
Lymphocytes % 15.0 L %
(20.5-51.1)
Glucose 103 H mg/dl
(70-99)
Urine Ketones 3+ A
(Negative)
Ur Occult Blood Reflex 4+ A
(Negative)
Leukocyte Esterase Rfl 1+ A
(Negative)
Urine RBC 3-6 A /HPF
(0-2)
Urine WBC (Reflex) 16-20 A /HPF
(0-5)
Urine Bacteria (Reflex) Many A
(Negative)
Urine Albumin (Reflex) 1+ A
(Neg - Trace)
07/02/25 05:27
07/02/25 05:27
Vital Signs
Initial and Last Documented VS:
Initial Vital Signs
Temp Pulse Resp BP Pulse Ox
97.8 F 118 28 124/90 100
07/02/25 05:03 07/02/25 05:03 07/02/25 05:03 07/02/25 05:03 07/02/25 05:03
Last Documented Vital Signs
Temp Pulse Resp BP Pulse Ox
97.8 F 81 16 112/75 97
07/02/25 05:03 07/02/25 08:47 07/02/25 08:47 07/02/25 10:13 07/02/25 10:13
<Mary Lou Payne PA-C - Last Filed: 07/02/25 13:16>
Orders/Labs/Results
Orders:
Orders
07/02/25 05:13
0.9% Sodium Chloride 500 ml [Nss] 500 ml IV BOLUS
Morphine Sulfate 4 mg IV NOW STA
Ondansetron Injectable [Zofran] 4 mg IV NOW STA
07/02/25 05:27
Complete Blood Count/With Diff Urgent
Comprehensive Metabolic Panel Urgent
07/02/25 07:22
Urinalysis Reflex To Culture Urgent
Date Specimen was Collected: 07/02/25
Time Specimen was Collected: 07:21
Urine Microscopic Reflex Cult Urgent
Urine Culture Urgent
KELSY Source: U
Specimen Description:
Date Specimen was Collected: 07/02/25
Time Specimen was Collected: 07:21
07/02/25 07:40
UROLOGY CONSULT Urgent
Consulting Provider: Dequan Murphy
Was physician already notified: Yes
07/02/25 08:13
0.9% Sodium Chloride 1000 ml [Nss] 1,000 ml IV BOLUS
07/02/25 08:56
Ketorolac [Toradol] 15 mg IV NOW STA
Abnormal Lab Results
07/02/25 07/02/25
05:27 07:22
WBC 12.4 H 10^3/uL
(4.8-10.8)
Abs Immat Gran (auto) 0.1 H 10^3/uL
(0-0.05)
Absolute Neuts (auto) 9.9 H 10^3/uL
(1.4-6.5)
Immature Gran % 0.6 H %
(0-0.5)
Neutrophils % 79.8 H %
(42.2-75.2)
Lymphocytes % 15.0 L %
(20.5-51.1)
Glucose 103 H mg/dl
(70-99)
Urine Ketones 3+ A
(Negative)
Ur Occult Blood Reflex 4+ A
(Negative)
Leukocyte Esterase Rfl 1+ A
(Negative)
Urine RBC 3-6 A /HPF
(0-2)
Urine WBC (Reflex) 16-20 A /HPF
(0-5)
Urine Bacteria (Reflex) Many A
(Negative)
Urine Albumin (Reflex) 1+ A
(Neg - Trace)
07/02/25 05:27
07/02/25 05:27
Vital Signs
Initial and Last Documented VS:
Initial Vital Signs
Temp Pulse Resp BP Pulse Ox
97.8 F 118 28 124/90 100
07/02/25 05:03 07/02/25 05:03 07/02/25 05:03 07/02/25 05:03 07/02/25 05:03
Last Documented Vital Signs
Temp Pulse Resp BP Pulse Ox
97.8 F 81 16 112/75 97
07/02/25 05:03 07/02/25 08:47 07/02/25 08:47 07/02/25 10:13 07/02/25 10:13
<Ana Paula Oreilly PA-C - Last Filed: 07/02/25 08:09>
*Pulse Oximetry
SaO2: 100
Patient hypoxic: no
*Critical Care Note
Total Time (30-74mins, 75-104mins- exclusive of procedures): Not Applicable
<Mary Lou Payne PA-C - Last Filed: 07/02/25 13:16>
Update Note
Update Note:
I assumed care of patient awaiting urology consult. Patient with persistent pain and IV Toradol ordered. She was seen by Dr. Thomas. Urology planning on ureteral stent placement today. Patient admitted for further management.
ED Attending Note
<Ana Paula Oreilly PA-C - Last Filed: 07/02/25 08:09>
-
Portions of this chart may have been created with voice recognition software.� Occasional wrong word or��sound alike� substitutions may have occurred due to the inherent limitations of voice recognition software.
Discharge Plan
Departure
Patient Disposition: Admit
Date of Disposition: 07/02/25
Time of Disposition: 11:00
Presentation/result/management discussed w/ accepting MD/DO: Dr. Thomas
Discharge Problem:
Right ureteral stone
Prescriptions:
No Action
ondansetron 4 mg tablet,disintegrating
4 mg PO TIDPRN PRN (Reason: nausea/vomiting) Qty: 10 0RF
Tirzepatide/B12 18mg/500mcg
75 unit SC TH
tamsulosin [Flomax] 0.4 mg capsule
0.4 mg PO DAILY
oxycodone 5 mg tablet
5 mg PO Q6HPRN PRN (Reason: SEVERE Pain)
Referrals:
Micaela Cortes DO [Family Provider, Family Practice]
Interventions
Interventions:
*Risk Screen - Suicide Last Done: 07/02/25 05:03
*General Assessment Last Done: 07/02/25 05:32
*Neglect/Abuse Screening Last Done: 07/02/25 05:03
*ED- Fall Risk Assessment Last Done: 07/02/25 05:32
*ED COVID-19 Vaccine History Last Done: 07/02/25 05:32
*ED Influenza Vaccine History Last Done: 07/02/25 05:32
FO-Lfrjrz-Aafxsdgvsw Assessment Last Done: 07/02/25 05:33
ED-Female Genitourinary Assessment Last Done: 07/02/25 05:33
Discharge Date and Time
Print Language: THAI
[2025-07-02] MEDS: MORPHINE SULFATE 4 MG IV (05:26)
[2025-07-02] MEDS: NSS 500 IV (05:26)
[2025-07-02] MEDS: ZOFRAN 4 MG IV (05:26)
[2025-07-02 05:46] LABS: Hematocrit 38.5 % (37.0-47.0); Hemoglobin 13.1 g/dL (12.0-16.0); Mean Corp Hgb Conc. 34.0 g/dL (33.0-37.0); Mean Corpuscular Volume 88.7 fL (81.0-99.0); Nucleated Red Blood Cells % 0 %; Platelet Count 271 10^3/uL (130-400); Red Cell Dist. Width 12.6 % (11.5-14.5)
[2025-07-02 06:05] LABS: ALT (SGPT) 18 U/L (0-35); AST (SGOT) 18 U/L (14-36); Albumin 4.5 g/dl (3.5-5.0); Alkaline Phosphatase 79 U/L (38-126); Blood Urea Nitrogen 9 mg/dl (7-17); Calcium 9.7 mg/dl (8.4-10.2); Carbon Dioxide 22 mmol/L (22-30); Chloride 105 mmol/L (98-107); Estimated Creatinine Clearance 101 ml/min; Glucose 103 mg/dl (70-99); Sodium 137 mmol/L (135-145); Total Protein 6.7 g/dl (6.3-8.2); eGFR > 60.00
[2025-07-02 06:11] LABS: Potassium 3.6 mmol/L (3.5-5.1)
[2025-07-02 08:03] LABS: Urine Character Slightly Cloudy (Clear)
[2025-07-02] MEDS: NSS 1000 IV (08:19)
[2025-07-02 08:25] LABS: Urine Squamous Cell >30 /LPF (Few)
[2025-07-02 08:28] LABS: Urine White Cell 16-20 /HPF (0-5)
[2025-07-02] MEDS: TORADOL 15 MG IV (09:07)
--- NOTE | 2025-07-02 11:13 | CONS.URO ---
Consultation
-
Date/Time Consultation Performed: 07/02/25, 10:50AM
Performing Provider: Martha
Reason for Consultation: nephrolithiasis
Medical History
History of Present Illness
30-year-old female with a history of kidney stones since she was 20 years old. She has always passed her stones and never needed surgery. Last episode was a few years ago.
Presented to ER yesterday with right flank pain, nausea/vomiting. Denies fevers/chills, dysuria.
CT A/P revealed 3mm R proximal ureteral stone with ureteral stranding - images were reviewed by me and discussed with the patient
She was discharged with oxycodone, flomax, and zofran. Ultimately took the medications at 6 p.m. and 3 a.m., but vomited them later. Expressed this renal colic is worse than her prior episodes and she feels unable to pass this stone
Has not been able to tolerate much PO within 24 hrs.
Having minimal relief with tramadol, had some relief with morphine but it dropped her BP.
PMH: nephrolithiasis
PSH: no stone surgery
FHx: family hx of nephrolithiasis
Allergies/Home Medications
Allergies
Allergy/AdvReac Type Severity Reaction Status Date / Time
amoxicillin Allergy Hives Verified 07/02/25 06:23
cefprozil (From Cefzil) Allergy Hives Verified 07/02/25 06:23
car Allergy Hives Verified 07/02/25 06:23
hydromorphone (From Dilaudid) Allergy Hives Verified 07/02/25 06:23
Penicillins Allergy Hives Verified 07/02/25 06:23
tramadol Allergy Hives Verified 07/02/25 06:23
Home Medications
�Medication �Instructions �Recorded �Confirmed �Type
ondansetron 4 mg disintegrating 4 mg PO TIDPRN PRN nausea/vomiting 07/01/25 07/02/25 Rx
tablet #10 tabs
Tirzepatide/B12 18mg/500mcg 75 unit SC TH 07/02/25 07/02/25 History
oxycodone 5 mg tablet 5 mg PO Q6HPRN PRN SEVERE Pain 07/02/25 07/02/25 History
tamsulosin 0.4 mg capsule (Flomax) 0.4 mg PO DAILY Infection 07/02/25 07/02/25 History
Physical Exam
Vital Signs
Vital Signs
Temp Pulse Resp BP Pulse Ox
97.8 F 81 16 112/75 97
07/02/25 05:03 07/02/25 08:47 07/02/25 08:47 07/02/25 10:13 07/02/25 10:13
Lab / Testing Results
Laboratory Results
07/02/25 05:27
07/02/25 05:27
Physical Exam
General: Well Developed (mildly distressed and teary eyed)
HEENT: Normocephalic
Respiratory: Clear
GI: Soft and Non Distended
Genito-urinary: Costovertebral Angle Tend
Skin: Warm
Assessment / Plan
-
30F with obstructing 3mm R proximal ureteral stone, with pain, nausea and vomiting refractory to multi-modal medical therapy.
Plan:
- Add on for OR today for right ureteroscopy, laser lithotripsy, stent placement. Discussed if the ureter is too tight or we find infected urine, we may have to stage her procedure. She is in understanding and agreement
- Remain NPO
- Pain and nausea control, IV fluids
- Continue flomax
Data Reviewed
-
CT Scan: Image personally visualized and interpreted
[2025-07-08 12:22] LABS: Stone Analysis Mass 9 mg
== END 2025-08-01 18:13 | disposition home or self-care (01) ==
LOC: SDS 18:11
PROVIDERS: Physician Assistant; ATTENDING PHYSICIAN Student in an Organized Health Care Education/Training Program; CONSULT PHYSICIAN Specialist; EMERGENCY PHYSICIAN Emergency Medicine; FAMILY PHYSICIAN Family Medicine
DX: N20.1 Calculus of ureter (principal)
CPT/HCPCS: 52352; 74018; 76000; 80053; 81003; 81015; 82365; 85025; 87086; 96361; 96374; 96375; 99284; C2617